=== PATIENT | female | born 1950 | race Caucasian/White ===

== ENCOUNTER 2017-10-22 17:24 | Emergency (ER) | payer MEDICARE, BC ==
[2017-10-22] MEDS ORDERED: Sodium Chloride 0.9% 10 ML Syringe FLUSH PRN (18:13)
--- NOTE | 2017-10-22 18:52 | EDM.PDOC ---
ED HPI GENERAL MEDICAL PROBLEM - General Chief Complaint: Genitourinary Problem Stated Complaint: UTI Time Seen by Provider: 10/22/17 18:10 Source of Information: Reports: Patient, Family History Limitations: Reports: No Limitations - History of Present Illness INITIAL COMMENTS - FREE TEXT/NARRATIVE: Marbella presents today with worsening UTI symptoms, discomfort with voiding, fevers and chills. She reports only once episode of nausea. She states she originally had symptoms 9 days ago, tried pushing oral fluids and her symptoms went away for 4 days. She developed blood in her urine 3-4 days ago, reported to clinic, was placed on clindamycin due to multiple allergies. She last took acetaminophen yesterday at 2130. ASA 325mg PO this am. She also reports history of frozen shoulder, head injury with diabetes insipidus. Pelvic Pain Score (Numeric/FACES): 4 - Related Data Allergies Allergy/AdvReac Type Severity Reaction Status Date / Time adhesive tape Allergy Rash Verified 10/22/17 17:56 barium sulfate Allergy Swelling Verified 10/22/17 17:56 ceftriaxone Allergy Cannot Verified 10/22/17 17:56 Remember cetirizine Allergy Swollen Verified 10/22/17 17:56 Eyes diclofenac Allergy Swelling Verified 10/22/17 17:56 gabapentin Allergy Swelling Verified 10/22/17 17:56 glycerin Allergy Cannot Verified 10/22/17 17:56 Remember hepatitis B immune globulin Allergy Cannot Verified 10/22/17 17:56 Remember hydrocodone Allergy Cannot Verified 10/22/17 17:56 Remember Iodinated Contrast- Oral and Allergy Hives Verified 10/22/17 17:56 IV Dye ketorolac [From Toradol] Allergy Cannot Verified 10/22/17 17:56 Remember lidocaine Allergy Swelling Verified 10/22/17 17:56 loratadine Allergy Swelling Verified 10/22/17 17:56 milk Allergy Cannot Verified 10/22/17 17:56 Remember nitrofurantoin Allergy Hives Verified 10/22/17 17:56 Penicillins Allergy Hives Verified 10/22/17 17:56 prochlorperazine Allergy Cannot Verified 10/22/17 17:56 [From Compazine] Remember propoxyphene Allergy Swelling Verified 10/22/17 17:56 ritodrine Allergy Tachycardia Verified 10/22/17 17:56 Sulfa (Sulfonamide Allergy Hives Verified 10/22/17 17:56 Antibiotics) thimerosal Allergy Cannot Verified 10/22/17 17:56 Remember yellow dye Allergy Cannot Verified 10/22/17 17:56 Remember Home Meds: Home Meds Aspirin 325 mg PO DAILY 10/22/17 [History] Clindamycin HCl [Cleocin] 300 mg PO Q8H 10/22/17 [History] Cyclobenzaprine [Flexeril] 10 mg PO BID 10/22/17 [History] Desloratadine 5 mg PO DAILY 10/22/17 [History] Levalbuterol Tartrate [Xopenex HFA] 1 puff INH Q6H 10/22/17 [History] Ondansetron [Zofran ODT] 4 mg PO Q6H PRN 10/22/17 [History] Pindolol [Visken] 2.5 mg PO BID 10/22/17 [History] Topiramate 50 mg PO BID 10/22/17 [History] Topiramate [Topamax] 25 mg PO BID 10/22/17 [History] Past Medical History HEENT History: Reports: Impaired Vision Cardiovascular History: Reports: Syncope, Other (See Below) Other Cardiovascular History: tachycardia Respiratory History: Reports: Asthma Genitourinary History: Reports: UTI, Recurrent [employer] History: Reports: Musculoskeletal History: Reports: Fracture, Other (See Below) Other Musculoskeletal History: frozen shoulder Neurological History: Reports: Brain Injury, Head Trauma Endocrine/Metabolic History: Reports: Other (See Below) Other Endocrine/Metabolic History: diabetes incipidous - Past Surgical History Cardiovascular Surgical History: Reports: Other (See Below) Other Cardiovascular Surgeries/Procedures: angiogram GI Surgical History: Reports: Colonoscopy Social & Family History - Tobacco Use Smoking Status *Q: Never Smoker - Caffeine Use Caffeine Use: Reports: Tea - Recreational Drug Use Recreational Drug Use: No ED ROS GENERAL - Review of Systems Review Of Systems: See Below Constitutional: Reports: Fever, Chills, Malaise. Denies: Weakness HEENT: Reports: No Symptoms Respiratory: Denies: Shortness of Breath, Wheezing, Cough, Sputum, Hemoptysis Cardiovascular: Denies: Chest Pain, Dyspnea on Exertion, Edema, Lightheadedness , Palpitations, PND, Syncope Endocrine: Reports: No Symptoms GI/Abdominal: Reports: Abdominal Pain. Denies: Black Stool, Bloody Stool, Constipation, Diarrhea, Difficulty Swallowing, Flatus, Hematemesis, Hematochezia , Nausea, Vomiting : Reports: Dysuria, Flank Pain. Denies: Frequency, Hematuria, Incontinence, Urgency, Urinary Retention Musculoskeletal: Reports: No Symptoms Skin: Reports: No Symptoms Neurological: Reports: Headache, Other (She reports her thinking feels a little slow/fuzzy. ). Denies: Dizziness, Numbness, Tingling, Weakness Psychiatric: Reports: No Symptoms Hematologic/Lymphatic: Reports: No Symptoms Immunologic: Reports: No Symptoms ED EXAM, RENAL/ - Physical Exam Exam: See Below Text/Narrative:: Marbella is an alert and oriented 66 year old female with complaints of worsening UTI symptoms despite use of clindamycin 300mg PO every 8 hours. Exam Limited By: No Limitations General Appearance: Alert, WD/WN, Mild Distress Eye Exam: Bilateral Eye: EOMI, Normal Inspection, PERRL Ears: Normal External Exam, Normal Canal, Hearing Grossly Normal, Normal TMs Nose: Normal Inspection, Normal Mucosa, No Blood Throat/Mouth: Normal Inspection, Normal Lips, Normal Teeth, Normal Gums, Normal Oropharynx, Normal Voice, No Airway Compromise Head: Atraumatic, Normocephalic Neck: Normal Inspection, Supple, Non-Tender, Full Range of Motion. No: Lymphadenopathy (R), Lymphadenopathy (L) Respiratory/Chest: No Respiratory Distress, Lungs Clear, Normal Breath Sounds, No Accessory Muscle Use, Chest Non-Tender Cardiovascular: Normal Peripheral Pulses, Regular Rate, Rhythm, No Edema, No Murmur, No Rub GI/Abdominal: Normal Bowel Sounds, Soft, No Organomegaly, No Distention, No Mass , Tender, Other (Tender to LUQ, LLQ). No: Guarding, Rigid, Rebound Back Exam: Normal Inspection, Full Range of Motion, CVA Tenderness (R). No: CVA Tenderness (L) Extremities: Normal Inspection, Normal Range of Motion, Non-Tender, No Pedal Edema, Normal Capillary Refill Neurological: Alert, Oriented, CN II-XII Intact, Normal Cognition, Normal Gait, No Motor/Sensory Deficits Psychiatric: Normal Affect, Normal Mood Skin Exam: Dry, Intact, Normal Color, No Rash, Increased Warmth Lymphatic: No Adenopathy EKG INTERPRETATION EKG Date: 10/22/17 Time: 18:37 Rhythm: NSR Rate (Beats/Min): 91 [place]: Normal P-Wave: Present QRS: Normal ST-T: Normal QT: Normal Course - Vital Signs Last Recorded V/S: Last Vital Signs Temp 39.0 C H 10/22/17 17:58 Pulse 98 10/22/17 18:17 Resp 18 10/22/17 18:17 BP 121/56 L 10/22/17 18:17 Pulse Ox 96 10/22/17 18:17 - Orders/Labs/Meds Orders: Active Orders 24 hr Category Date Time Status EKG Documentation Completion [RC] ASDIRECTED Care 10/22/17 18:15 Active Vital Signs [RC] Q1H Care 10/22/17 18:17 Active Chest 1V Frontal [CR] Stat Exams 10/22/17 18:18 Taken CULTURE BLOOD [BC] Stat Lab 10/22/17 18:20 Ordered CULTURE BLOOD [BC] Stat Lab 10/22/17 18:35 Ordered CULTURE URINE [RM] Stat Lab 10/22/17 19:08 Ordered UA W/MICROSCOPIC [URIN] Stat Lab 10/22/17 19:08 Ordered Saline Lock Insert [OM.PC] Routine Oth 10/22/17 18:13 Ordered EKG 12 Lead [EK] Routine Ther 10/22/17 18:13 Ordered Labs: Laboratory Tests 10/22/17 10/22/17 10/22/17 Range/Units 18:35 18:35 18:35 WBC 11.3 H (4.5-11.0) K/uL RBC 4.21 (3.30-5.50) M/uL Hgb 12.7 (12.0-15.0) g/dL Hct 39.0 (36.0-48.0) % MCV 93 (80-98) fL MCH 30 (27-31) pg MCHC 33 (32-36) % Plt Count 356 (150-400) K/uL Neut % (Auto) 75 H (36-66) % Lymph % (Auto) 10 L (24-44) % Nelson % (Auto) 12 H (2-6) % Eos % (Auto) 2 (2-4) % Baso % (Auto) 0 (0-1) % Sodium 138 L (140-148) mmol/L Potassium 3.8 (3.6-5.2) mmol/L Chloride 103 (100-108) mmol/L Carbon Dioxide 24 (21-32) mmol/L Anion Gap 14.8 H (5.0-14.0) mmol/L BUN 23 H (7-18) mg/dL Creatinine 1.3 H (0.6-1.0) mg/dL Est Cr Clr Drug Dosing 41.72 mL/min Estimated GFR (MDRD) 41 L (>60) Glucose 115 H (74-106) mg/dL Lactic Acid 1.0 (0.4-2.0) mmol/L Calcium 8.8 (8.5-10.1) mg/dL Total Bilirubin 0.4 (0.2-1.0) mg/dL AST 28 (15-37) U/L ALT 39 (12-78) U/L Alkaline Phosphatase 81 (46-116) U/L C-Reactive Protein 7.15 H (0.0-0.3) mg/dL Total Protein 7.6 (6.4-8.2) g/dL Albumin 3.8 (3.4-5.0) g/dL Globulin 3.8 H (2.3-3.5) g/dL Albumin/Globulin Ratio 1.0 L (1.2-2.2) Urine Color Urine Appearance Urine pH (4.5-8.0) Ur Specific [place] (1.008-1.030) Urine Protein (NEGATIVE) mg/dL Urine Glucose (UA) (NEGATIVE) mg/dL Urine Ketones (NEGATIVE) mg/dL Urine Occult Blood (NEGATIVE) Urine Nitrite (NEGATIVE) Urine Bilirubin (NEGATIVE) Urine Urobilinogen (NORMAL) mg/dL Ur Leukocyte Esterase (NEGATIVE) Urine RBC (0-5) Urine WBC (0-5) Ur Epithelial Cells Amorphous Sediment Urine Bacteria Urine Mucus 10/22/17 Range/Units 19:08 WBC (4.5-11.0) K/uL RBC (3.30-5.50) M/uL Hgb (12.0-15.0) g/dL Hct (36.0-48.0) % MCV (80-98) fL MCH (27-31) pg MCHC (32-36) % Plt Count (150-400) K/uL Neut % (Auto) (36-66) % Lymph % (Auto) (24-44) % Nelson % (Auto) (2-6) % Eos % (Auto) (2-4) % Baso % (Auto) (0-1) % Sodium (140-148) mmol/L Potassium (3.6-5.2) mmol/L Chloride (100-108) mmol/L Carbon Dioxide (21-32) mmol/L Anion Gap (5.0-14.0) mmol/L BUN (7-18) mg/dL Creatinine (0.6-1.0) mg/dL Est Cr Clr Drug Dosing mL/min Estimated GFR (MDRD) (>60) Glucose (74-106) mg/dL Lactic Acid (0.4-2.0) mmol/L Calcium (8.5-10.1) mg/dL Total Bilirubin (0.2-1.0) mg/dL AST (15-37) U/L ALT (12-78) U/L Alkaline Phosphatase (46-116) U/L C-Reactive Protein (0.0-0.3) mg/dL Total Protein (6.4-8.2) g/dL Albumin (3.4-5.0) g/dL Globulin (2.3-3.5) g/dL Albumin/Globulin Ratio (1.2-2.2) Urine Color Yellow Urine Appearance Slightly cloudy Urine pH 6.0 (4.5-8.0) Ur Specific [place] 1.015 (1.008-1.030) Urine Protein Negative (NEGATIVE) mg/dL Urine Glucose (UA) Normal (NEGATIVE) mg/dL Urine Ketones 15 H (NEGATIVE) mg/dL Urine Occult Blood Moderate (NEGATIVE) Urine Nitrite Negative (NEGATIVE) Urine Bilirubin Negative (NEGATIVE) Urine Urobilinogen Normal (NORMAL) mg/dL Ur Leukocyte Esterase Large (NEGATIVE) Urine RBC 0-5 (0-5) Urine WBC 10-20 H (0-5) Ur Epithelial Cells Rare Amorphous Sediment Not seen Urine Bacteria Few Urine Mucus Not seen Patient lab work reviewed, she was notified of findings. We will complete 2 liters of Normal saline infusion, change antibiotics to doxycyline. Meds: Medications Discontinued Medications Generic Name Dose Route Start Last Admin Trade Name Freq PRN Reason Stop Dose Admin Acetaminophen 1,000 mg 10/22/17 18:55 10/22/17 18:59 Tylenol Extra Strength PO 10/22/17 18:56 1,000 mg ONETIME ONE Administration Doxycycline Hyclate 100 mg 10/22/17 20:46 10/22/17 21:02 Vibramycin PO 10/22/17 20:47 Not Given ONETIME ONE Sodium Chloride 1,000 mls @ 1,000 mls/hr 10/22/17 18:55 10/22/17 19:00 Normal Saline IV 10/22/17 19:54 1,000 mls/hr .BOLUS ONE Administration Sodium Chloride 1,000 mls @ 1,000 mls/hr 10/22/17 19:45 10/22/17 19:49 Normal Saline IV 10/22/17 20:44 1,000 mls/hr .BOLUS ONE Administration Sodium Chloride 10 ml 10/22/17 18:13 10/22/17 18:59 Saline Flush FLUSH 10 ml ASDIRECTED PRN Administration Keep Vein Open - Radiology Interpretation Free Text/Narrative:: Chest x-ray reviewed, wet read. No acute findings. - Re-Assessments/Exams Free Text/Narrative Re-Assessment/Exam: 10/22/17 20:55 Discussed use of antibiotics with patient. She declines offer of levaquin, she is not allergic to levaquin. She declines due to the side effects of its use. She was advised of the risks including development of sepsis without proper treatment, she verbalized understanding. She will try use of doxycycline 100mg PO twice per day for 10 days for acute UTI. Dr. Saleem notified of plan, he is in agreement. Departure - Departure Time of Disposition: 21:00 Disposition: Home, Self-Care 01 Condition: Fair Clinical Impression: UTI, Urinary tract infectious disease, Dehydration - Discharge Information Instructions: Urinary Tract Infection, Adult, [id number], Dehydration, Adult , [id number] Referrals: Vincenzo Ivory MD [Primary Care Provider] - Forms: ED Department Discharge Additional Instructions: You have been treated and evaluated for worsening acute urinary tract infection. EKG normal Chest x-ray showed no acute findings Lab work showed dehydration without sepsis Normal saline 2 liters administered IV Stop use of clindamycin antibiotic. Start use of doxycycline 100mg by mouth twice per day for 10 days. Follow up with primary provider for recheck in 2 to 5 days. Push oral fluids, rest. Return for any worsening, fever, change in mental status, or other concerns. It may be in your best interest to have your primary provider preauthorize use of fosfomycin for future UTI if appropriate due to medical history and multiple allergies. - My Orders Last 24 Hours: My Active Orders 10/22/17 18:13 Saline Lock Insert [OM.PC] Routine EKG 12 Lead [EK] Routine 10/22/17 18:15 EKG Documentation Completion [RC] ASDIRECTED 10/22/17 18:17 Vital Signs [RC] Q1H 10/22/17 18:18 Chest 1V Frontal [CR] Stat 10/22/17 18:20 CULTURE BLOOD [BC] Stat 10/22/17 18:35 CULTURE BLOOD [BC] Stat 10/22/17 19:08 CULTURE URINE [RM] Stat - Assessment/Plan Last 24 Hours: My Active Orders 10/22/17 18:13 Saline Lock Insert [OM.PC] Routine EKG 12 Lead [EK] Routine 10/22/17 18:15 EKG Documentation Completion [RC] ASDIRECTED 10/22/17 18:17 Vital Signs [RC] Q1H 10/22/17 18:18 Chest 1V Frontal [CR] Stat 10/22/17 18:20 CULTURE BLOOD [BC] Stat 10/22/17 18:35 CULTURE BLOOD [BC] Stat 10/22/17 19:08 CULTURE URINE [RM] Stat Assessment:: Acute urinary tract infection Plan: Patient treated and evaluated for worsening acute urinary tract infection. EKG normal Chest x-ray showed no acute findings Lab work showed dehydration without sepsis Normal saline 2 liters administered IV Stop use of clindamycin antibiotic. Start use of doxycycline 100mg by mouth twice per day for 10 days. Follow up with primary provider for recheck in 2 to 5 days. Push oral fluids, rest. Return for any worsening, fever, change in mental status, or other concerns. It may be in her best interest to have her primary provider preauthorize use of fosfomycin for future UTI if appropriate due to medical history and multiple allergies if pertinent.
[2017-10-22] MEDS ORDERED: Acetaminophen 500 MG Tab PO ONE (18:55)
[2017-10-22] MEDS ORDERED: Sodium Chloride 0.9% 1,000 ML IV ONE ×2 (18:55→19:45)
[2017-10-22] MEDS ORDERED: Doxycycline 100 MG Cap PO ONE (20:46)
--- NOTE | 2017-10-24 10:04 | CR ---
Chest 1V Frontal INDICATION: Fever FINDINGS: Negative AP portable chest x-ray.
== END 2017-10-22 21:09 | disposition home or self-care (01) ==
LOC: JP.ED 17:24
DX: N39.0 Urinary tract infection, site not specified (principal); E23.2 Diabetes insipidus; J45.909 Unspecified asthma, uncomplicated; Z79.82 Long term (current) use of aspirin; Z79.899 Other long term (current) drug therapy; Z91.011 Allergy to milk products; Z91.041 Radiographic dye allergy status; Z88.2 Allergy status to sulfonamides; Z88.1 Allergy status to other antibiotic agents; Z88.8 Allergy status to other drugs, medicaments and biological substances; Z88.6 Allergy status to analgesic agent; Z88.5 Allergy status to narcotic agent; Z91.09 Other allergy status, other than to drugs and biological substances
CPT/HCPCS: 36415; 71045; 80053; 81001; 83605; 85025; 86140; 87040; 87086; 87088; 87186; 93005; 96360; 96361; 99284; A9270; J7040; J7050

== ENCOUNTER 2019-03-26 14:50 | Emergency (ER) | payer MEDICARE, BC ==
--- NOTE | 2019-03-26 15:10 | EDM.PDOC ---
ED HPI GENERAL MEDICAL PROBLEM - General Chief Complaint: Chest Pain Stated Complaint: CHEST PAIN Time Seen by Provider: 03/26/19 14:56 Source of Information: Reports: Patient History Limitations: Reports: No Limitations - History of Present Illness INITIAL COMMENTS - FREE TEXT/NARRATIVE: Marbella is a 68 year old female, presents to the ED today with c/o midsternal left sided chest pain. Patient reports pain was intense, mildly improved with Mylanta and Tylenol, took baby aspirin this morning. Patient did have some nausea. Patient denies any vomiting. Denies any recent URI symptoms. Patient at baseline has some sob, mildly worse today, no injury or trauma, significant family hx of cardiac disease and PE's. Patient had nuc med stress test in December as well as lung perfusion study last May which were both reassuring. Patient denies any fever. Patient did just finish a two day care ride a couple of weeks ago, denies any unilateral swelling. 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 Right Chest Pain Score (Numeric/FACES): 2 - Related Data Allergies Allergy/AdvReac Type Severity Reaction Status Date / Time adhesive tape Allergy Rash Verified 12/13/18 09:38 barium sulfate Allergy Swelling Verified 12/13/18 09:38 ceftriaxone Allergy Cannot Verified 12/13/18 09:38 Remember cetirizine Allergy Swollen Verified 12/13/18 09:38 Eyes diclofenac Allergy Swelling Verified 12/13/18 09:38 gabapentin Allergy Swelling Verified 12/13/18 09:38 glycerin Allergy Cannot Verified 12/13/18 09:38 Remember hepatitis B immune globulin Allergy Cannot Verified 12/13/18 09:38 Remember hydrocodone Allergy Cannot Verified 12/13/18 09:38 Remember Iodinated Contrast Media Allergy Hives Verified 12/13/18 09:38 ketorolac [From Toradol] Allergy Cannot Verified 12/13/18 09:38 Remember lidocaine Allergy Swelling Verified 12/13/18 09:38 loratadine Allergy Swelling Verified 12/13/18 09:38 milk Allergy Cannot Verified 12/13/18 09:38 Remember nitrofurantoin Allergy Hives Verified 12/13/18 09:38 Penicillins Allergy Hives Verified 12/13/18 09:38 prochlorperazine Allergy Cannot Verified 12/13/18 09:38 [From Compazine] Remember propoxyphene Allergy Swelling Verified 12/13/18 09:38 ritodrine Allergy Tachycardia Verified 12/13/18 09:38 Sulfa (Sulfonamide Allergy Hives Verified 12/13/18 09:38 Antibiotics) thimerosal Allergy Cannot Verified 12/13/18 09:38 Remember yellow dye Allergy Cannot Verified 12/13/18 09:38 Remember Home Meds: Home Meds Aspirin 81 mg PO BID 10/22/17 [History] Cyclobenzaprine [Flexeril] 10 mg PO BID 10/22/17 [History] Desloratadine 5 mg PO DAILY 10/22/17 [History] Levalbuterol Tartrate [Xopenex HFA] 2 puff INH Q4H PRN 10/22/17 [History] Ondansetron [Zofran ODT] 4 mg PO Q6H PRN 10/22/17 [History] Pindolol [Visken] 2.5 mg PO BID 10/22/17 [History] Topiramate [Topamax] 50 mg PO BID 10/22/17 [History] Acetaminophen [Tylenol Extra Strength] 2 tab PO Q4H PRN 12/08/18 [History] Ascorbic Acid [Vitamin C] 1 tab PO BID 12/08/18 [History] Multivitamin [Multivitamins] 1 tab PO BID 12/08/18 [History] Naproxen 1 tab PO BID 12/08/18 [History] Past Medical History HEENT History: Reports: Impaired Vision Cardiovascular History: Reports: Syncope, Other (See Below) Other Cardiovascular History: tachycardia Respiratory History: Reports: Asthma Genitourinary History: Reports: UTI, Recurrent 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: Musculoskeletal History: Reports: Fracture, Other (See Below) Other Musculoskeletal History: frozen shoulder Neurological History: Reports: Brain Injury, Head Trauma Endocrine/Metabolic History: Reports: Other (See Below) Other Endocrine/Metabolic History: diabetes incipidous - Past Surgical History Cardiovascular Surgical History: Reports: Other (See Below) Other Cardiovascular Surgeries/Procedures: angiogram GI Surgical History: Reports: Colonoscopy Social & Family History - Caffeine Use Caffeine Use: Reports: Tea ED ROS GENERAL - Review of Systems Review Of Systems: ROS reveals no pertinent complaints other than HPI. ED EXAM, GENERAL - Physical Exam Exam: See Below Exam Limited By: No Limitations General Appearance: Alert, WD/WN, No Apparent Distress Ears: Normal External Exam Nose: Normal Inspection Throat/Mouth: Normal Oropharynx Head: Atraumatic Neck: Normal Inspection, Supple, Non-Tender Respiratory/Chest: No Respiratory Distress, Lungs Clear Cardiovascular: Normal Peripheral Pulses, Regular Rate, Rhythm, No Murmur GI/Abdominal: Normal Bowel Sounds, Soft, Non-Tender Back Exam: Normal Inspection Extremities: Normal Inspection, Normal Range of Motion Neurological: Alert, Oriented, CN II-XII Intact Psychiatric: Normal Affect, Normal Mood Skin Exam: Warm, Dry, Intact Lymphatic: No Adenopathy EKG INTERPRETATION EKG Date: 03/26/19 Time: 15:00 Rhythm: NSR [place]: Normal P-Wave: Present QRS: Normal ST-T: Normal QT: Normal Comparison: No Change Course - Vital Signs Last Recorded V/S: Last Vital Signs Temp 37.2 C 03/26/19 15:35 Pulse 86 03/26/19 16:13 Resp 19 03/26/19 16:13 BP 150/79 H 03/26/19 16:13 Pulse Ox 95 03/26/19 16:13 Marbella is a 68 year old female who presents to the ED today with c/o chest pain that started at 1030 this morning with some sob and nausea. Please refer to HPI and focused exam. Patient arrives here hemodynamically stable, afebrile, baseline tremor but appears anxious as well. Recent Nuc Med stress test in December which was unremarkable. Lung perfusion Nuc Med in May of last year which was unremarkable as well but strong family hx of blood clots and cardiac issues, so certainly concerned for either of these. No fever or other symptoms to indicate infectious etiology. Pain is not reproducible. EKG and troponin unremarkable. Patient was started on NTG paste which did help the chest pain, still pain in back improved with Fentanyl. Blood work returns with elevated D Dimer of 1110, Creatinine of 1.2 with BUN of 23 and GFR of 45. Unfortunately patient is allergic to IVP dye and we do not have Nuc Med here tonight or tomorrow. I discussed patient with Dr. Lynn, [facility] ED who has graciously accepted patient for transfer for VQ scan this evening. Patient and have been updated on plan of care. Giving reassuring Vital Signs I feel she is stable for private transfer which patient prefers. Patient discharged is stable condition. - Orders/Labs/Meds Orders: Active Orders 24 hr Category Date Time Status EKG Documentation Completion [RC] ASDIRECTED Care 03/26/19 14:55 Active Peripheral IV Care [RC] . DIRECTED Care 03/26/19 15:16 Active Sodium Chloride 0.9% [Normal Saline] 1,000 ml Med 03/26/19 15:30 Active IV ASDIRECTED Sodium Chloride 0.9% [Saline Flush] Med 03/26/19 15:16 Active 10 ml FLUSH ASDIRECTED PRN Peripheral IV Insertion Adult [OM.PC] Routine Oth 03/26/19 15:16 Ordered EKG 12 Lead [EK] Stat Ther 03/26/19 14:55 Ordered Medication Orders Sodium Chloride (Normal Saline) 1,000 mls @ 150 mls/hr IV ASDIRECTED NELL Last Admin: 03/26/19 15:34 Dose: 150 mls/hr Sodium Chloride (Saline Flush) 10 ml FLUSH ASDIRECTED PRN PRN Reason: Keep Vein Open Labs: Laboratory Tests 03/26/19 03/26/19 03/26/19 Range/Units 15:28 15:28 15:28 WBC 7.7 (4.5-11.0) K/uL RBC 4.60 (3.30-5.50) M/uL Hgb 13.5 (12.0-15.0) g/dL Hct 43.5 (36.0-48.0) % MCV 95 (80-98) fL MCH 29 (27-31) pg MCHC 31 L (32-36) % Plt Count 400 (150-400) K/uL Neut % (Auto) 61 (36-66) % Lymph % (Auto) 24 (24-44) % [place] % (Auto) 10 H (2-6) % Eos % (Auto) 5 H (2-4) % Baso % (Auto) 0 (0-1) % D-Dimer, Quantitative 1110 H (0.0-400.0) ng/mL Sodium 141 (140-148) mmol/L Potassium 4.6 (3.6-5.2) mmol/L Chloride 105 (100-108) mmol/L Carbon Dioxide 26 (21-32) mmol/L Anion Gap 10.1 (5.0-14.0) mmol/L BUN 23 H (7-18) mg/dL Creatinine 1.2 H (0.6-1.0) mg/dL Est Cr Clr Drug Dosing 44.01 mL/min Estimated GFR (MDRD) 45 L (>60) Glucose 105 (74-106) mg/dL Calcium 9.5 (8.5-10.1) mg/dL Total Bilirubin 0.3 (0.2-1.0) mg/dL AST 23 (15-37) U/L ALT 38 (12-78) U/L Alkaline Phosphatase 92 (46-116) U/L Troponin I < 0.017 (0.000-0.056) ng/mL Total Protein 7.9 (6.4-8.2) g/dL Albumin 4.2 (3.4-5.0) g/dL Globulin 3.7 H (2.3-3.5) g/dL Albumin/Globulin Ratio 1.1 L (1.2-2.2) Meds: Medications Generic Name Dose Route Start Last Admin Trade Name Freq PRN Reason Stop Dose Admin Sodium Chloride 1,000 mls @ 150 mls/hr 03/26/19 15:30 03/26/19 15:34 Normal Saline IV 150 mls/hr ASDIRECTED NELL Administration Sodium Chloride 10 ml 03/26/19 15:16 Saline Flush FLUSH ASDIRECTED PRN Keep Vein Open Discontinued Medications Generic Name Dose Route Start Last Admin Trade Name Freq PRN Reason Stop Dose Admin Fentanyl 50 mcg 03/26/19 15:43 03/26/19 16:18 Sublimaze IVPUSH 03/26/19 15:44 50 mcg ONETIME ONE Administration Morphine Sulfate 4 mg 03/26/19 15:17 Morphine IVPUSH ONETIME PRN Chest Pain Nitroglycerin 0.2 mg 03/26/19 15:16 03/26/19 15:32 Nitro-Dur 0.1 Mg/Hr TRDERM 03/26/19 15:17 0.2 mg ONETIME ONE Administration Departure - Departure Time of Disposition: 17:30 Disposition: DC/Tfer to Acute Hospital 02 Reason for Transfer *Q: Primary PCI Indicated (Needs VQ scan, unable to do here) Condition: Fair Clinical Impression: Chest pain in adult, Elevated d-dimer Instructions: Nonspecific Chest Pain Referrals: Vincenzo Ivory MD [Primary Care Provider] - Forms: ED Department Discharge Additional Instructions: Head to [facility] ED Dr. Lynn has accepted the transfer. - My Orders Last 24 Hours: My Active Orders 03/26/19 14:55 EKG Documentation Completion [RC] ASDIRECTED EKG 12 Lead [EK] Stat 03/26/19 15:16 Peripheral IV Care [RC] . DIRECTED Sodium Chloride 0.9% [Saline Flush] 10 ml FLUSH ASDIRECTED PRN Peripheral IV Insertion Adult [OM.PC] Routine 03/26/19 15:30 Sodium Chloride 0.9% [Normal Saline] 1,000 ml IV ASDIRECTED - Assessment/Plan Last 24 Hours: My Active Orders 03/26/19 14:55 EKG Documentation Completion [RC] ASDIRECTED EKG 12 Lead [EK] Stat 03/26/19 15:16 Peripheral IV Care [RC] . DIRECTED Sodium Chloride 0.9% [Saline Flush] 10 ml FLUSH ASDIRECTED PRN Peripheral IV Insertion Adult [OM.PC] Routine 03/26/19 15:30 Sodium Chloride 0.9% [Normal Saline] 1,000 ml IV ASDIRECTED
[2019-03-26] MEDS ORDERED: Sodium Chloride 0.9% 10 ML Syringe FLUSH PRN (15:16)
[2019-03-26] MEDS ORDERED: Nitroglycerin 0.1 MG/HR Transdermal Patch TRDERM ONE (15:16)
[2019-03-26] MEDS ORDERED: Morphine 4 MG/ML Syringe IVPUSH PRN (15:17)
[2019-03-26] MEDS ORDERED: Sodium Chloride 0.9% 1,000 ML IV SCH (15:30)
[2019-03-26] MEDS ORDERED: fentaNYL 100 MCG/2 ML SDV IVPUSH ONE (15:43)
== END 2019-03-26 17:02 ==
LOC: JP.ED 14:50
DX: R07.2 Precordial pain (principal); R79.1 Abnormal coagulation profile; J45.909 Unspecified asthma, uncomplicated; Z91.048 Other nonmedicinal substance allergy status; Z91.041 Radiographic dye allergy status; Z88.1 Allergy status to other antibiotic agents; Z88.6 Allergy status to analgesic agent; Z88.8 Allergy status to other drugs, medicaments and biological substances; Z91.011 Allergy to milk products; Z88.0 Allergy status to penicillin; Z88.2 Allergy status to sulfonamides; Z79.82 Long term (current) use of aspirin; Z79.899 Other long term (current) drug therapy
CPT/HCPCS: 36415; 80053; 84484; 85025; 85379; 93005; 96361; 96374; 96375; 99285; A9270; J3010; J7030

== ENCOUNTER 2020-10-25 14:45 | Inpatient (IN) | payer MEDICARE, BC ==
[2020-10-25] MEDS ORDERED: Simethicone 80 MG Tab.Chew PO ONE (16:14)
--- NOTE | 2020-10-25 16:27 | EDM.PDOC ---
<KavyajaironUlises G - Last Filed: 10/25/20 17:39> ED HPI GENERAL MEDICAL PROBLEM - General Chief Complaint: Abdominal Pain Stated Complaint: stomach issues Time Seen by Provider: 10/25/20 16:15 Source of Information: Reports: Patient, Old Records, RN History Limitations: Reports: No Limitations - History of Present Illness INITIAL COMMENTS - FREE TEXT/NARRATIVE: 69 yo female has been dealing with some abdominal bloating for some time now. Was recently seen in follow up by a COMMISSIONS ANALYST for follow up on some COMMISSIONS ANALYST surgery. While there mentioned the bloating. The COMMISSIONS ANALYST thought she might have a partial bowel obstruction and a CT scan was scheduled for next week. Starting in the night last night she has felt more bloating and her last 2 BM's were softer/looser t anguiano normal. No vomiting. Onset: Gradual Duration: Week(s):, Getting Worse, Waxing/Waning Location: Reports: Abdomen Quality: Reports: Pressure Severity: Mild Improves with: Reports: None Worsens with: Reports: Other (with time) Context: Reports: Other (see HPI) Associated Symptoms: Reports: No Other Symptoms. 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) (Maalox Plus last night without relief) Abdomen Pain Score (Numeric/FACES): 6 - Related Data Allergies Allergy/AdvReac Type Severity Reaction Status Date / Time adhesive tape Allergy Rash Verified 12/13/18 09:38 barium sulfate Allergy Swelling Verified 12/13/18 09:38 ceftriaxone Allergy Cannot Verified 12/13/18 09:38 Remember cetirizine Allergy Swollen Verified 12/13/18 09:38 Eyes diclofenac Allergy Swelling Verified 12/13/18 09:38 gabapentin Allergy Swelling Verified 12/13/18 09:38 glycerin Allergy Cannot Verified 12/13/18 09:38 Remember hepatitis B immune globulin Allergy Cannot Verified 12/13/18 09:38 Remember hydrocodone Allergy Cannot Verified 12/13/18 09:38 Remember Iodinated Contrast Media Allergy Hives Verified 12/13/18 09:38 ketorolac [From Toradol] Allergy Cannot Verified 12/13/18 09:38 Remember lidocaine Allergy Swelling Verified 12/13/18 09:38 loratadine Allergy Swelling Verified 12/13/18 09:38 milk Allergy Cannot Verified 12/13/18 09:38 Remember nitrofurantoin Allergy Hives Verified 12/13/18 09:38 Penicillins Allergy Hives Verified 12/13/18 09:38 prochlorperazine Allergy Cannot Verified 12/13/18 09:38 [From Compazine] Remember propoxyphene Allergy Swelling Verified 12/13/18 09:38 ritodrine Allergy Tachycardia Verified 12/13/18 09:38 Sulfa (Sulfonamide Allergy Hives Verified 12/13/18 09:38 Antibiotics) thimerosal Allergy Cannot Verified 12/13/18 09:38 Remember yellow dye Allergy Cannot Verified 12/13/18 09:38 Remember Home Meds: Home Meds Aspirin 81 mg PO BID 10/22/17 [History] Cyclobenzaprine [Flexeril] 10 mg PO BID 10/22/17 [History] Desloratadine 5 mg PO DAILY 10/22/17 [History] Levalbuterol Tartrate [Xopenex HFA] 2 puff INH Q4H PRN 10/22/17 [History] Ondansetron [Zofran ODT] 4 mg PO Q6H PRN 10/22/17 [History] Topiramate [Topamax] 50 mg PO BID 10/22/17 [History] pindoloL [Visken] 2.5 mg PO BID 10/22/17 [History] Acetaminophen [Tylenol Extra Strength] 2 tab PO Q4H PRN 12/08/18 [History] Ascorbic Acid [Vitamin C] 1 tab PO BID 12/08/18 [History] Multivitamin [Multivitamins] 1 tab PO BID 12/08/18 [History] Naproxen 1 tab PO BID 12/08/18 [History] Olopatadine [Patanol 0.1% Ophth Soln] 1 % .ROUTE BID 10/25/20 [History] Topiramate 50 mg PO ASDIRECTED 10/25/20 [History] Past Medical History HEENT History: Reports: Impaired Vision Cardiovascular History: Reports: Syncope, Other (See Below) Other Cardiovascular History: tachycardia Respiratory History: Reports: Asthma Gastrointestinal History: Reports: Other (See Below) Other Gastrointestinal History: C/O abd blotting Genitourinary History: Reports: UTI, Recurrent 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: Musculoskeletal History: Reports: Fracture, Other (See Below) Other Musculoskeletal History: Fx ankle frozen shoulder Neurological History: Reports: Brain Injury, Head Trauma Endocrine/Metabolic History: Reports: Other (See Below) Other Endocrine/Metabolic History: diabetes incipidous - Infectious Disease History Infectious Disease History: Reports: Chicken Pox - Past Surgical History Cardiovascular Surgical History: Reports: Other (See Below) Other Cardiovascular Surgeries/Procedures: angiogram GI Surgical History: Reports: Colonoscopy Social & Family History - Tobacco Use Tobacco Use Status *Q: Never Tobacco User - Caffeine Use Caffeine Use: Reports: Coffee - Recreational Drug Use Recreational Drug Use: No ED ROS GENERAL - Review of Systems Review Of Systems: See Below Constitutional: Reports: No Symptoms HEENT: Reports: No Symptoms Respiratory: Reports: No Symptoms Cardiovascular: Reports: No Symptoms GI/Abdominal: Reports: Abdominal Pain (bloating), Diarrhea, Distension. Denies: Black Stool, Bloody Stool, Constipation, Hematemesis, Hematochezia, Melena, Nausea, Vomiting : Reports: No Symptoms Musculoskeletal: Reports: No Symptoms Skin: Reports: No Symptoms Neurological: Reports: No Symptoms Psychiatric: Reports: No Symptoms ED EXAM, GI/ABD - Physical Exam Exam: See Below Exam Limited By: No Limitations General Appearance: Alert, WD/WN, No Apparent Distress Eyes: Bilateral: Normal Appearance Ears: Normal External Exam, Normal Canal, Hearing Grossly Normal Nose: Normal Inspection, No Blood Throat/Mouth: Normal Inspection, Normal Lips, Normal Voice, No Airway Compromise Head: Atraumatic, Normocephalic Neck: Normal Inspection Respiratory/Chest: No Respiratory Distress, Lungs Clear, Normal Breath Sounds, No Accessory Muscle Use Cardiovascular: Regular Rate, Rhythm, No Edema GI/Abdominal Exam: Soft, Non-Tender, Distended (minimal), Abnormal Bowel Sounds (increased). No: No Distention, Guarding, Rigid, Rebound, Tender Extremities: Normal Inspection, Normal Range of Motion, Non-Tender, No Pedal Edema Neurological: Alert, Oriented, CN II-XII Intact, Normal Cognition, No Motor/Sensory Deficits Psychiatric: Normal Affect, Normal Mood Skin Exam: Warm, Dry, Intact, Normal Color, No Rash Course - Radiology Interpretation Free Text/Narrative:: Flat/upright abdominal X-rays-air fluid levels present, likely early or partial bowel obstruction CT abd/pelvis no contrast- Departure - Departure Disposition: Admitted As Inpatient 68 Clinical Impression: Partial obstruction of small intestine - Discharge Information Referrals: Vincenzo Ivory MD [Primary Care Provider] - Forms: ED Department Discharge Sepsis Event Note (ED) - Evaluation Sepsis Screening Result: No Definite Risk <Praful Amanda - Last Filed: 10/25/20 18:55> Course - Vital Signs Last Recorded V/S: Last Vital Signs Temp 36.4 C 10/25/20 15:09 Pulse 78 10/25/20 15:09 Resp 18 10/25/20 15:09 BP 141/77 H 10/25/20 15:09 Pulse Ox 96 10/25/20 15:09 - Orders/Labs/Meds Orders: Active Orders 24 hr Category Date Time Status Abdomen 2V AP Flat Upright [CR] Stat Exams 10/25/20 16:21 Taken Abdomen Pelvis wo Cont [CT] Stat Exams 10/25/20 17:03 Taken Lactated Ringers [Ringers, Lactated] 1,000 ml Med 10/25/20 17:45 Active IV ASDIRECTED Sodium Chloride 0.9% [Saline Flush] Med 10/25/20 17:01 Active 10 ml FLUSH ASDIRECTED PRN Saline Lock Insert [OM.PC] Routine Oth 10/25/20 17:01 Ordered Medication Orders Lactated Ringer's (Ringers, Lactated) 1,000 mls @ 150 mls/hr IV ASDIRECTED NELL Last Admin: 10/25/20 17:59 Dose: 150 mls/hr Documented by: JOSE Sodium Chloride (Sodium Chloride 0.9% 10 Ml Syringe) 10 ml FLUSH ASDIRECTED PRN PRN Reason: Keep Vein Open Last Admin: 10/25/20 17:58 Dose: 10 ml Documented by: JOSE Labs: Laboratory Tests 10/25/20 10/25/20 Range/Units 17:20 17:20 WBC 8.9 (4.5-11.0) K/uL RBC 4.65 (3.30-5.50) M/uL Hgb 13.6 (12.0-15.0) g/dL Hct 43.8 (36.0-48.0) % MCV 94 (80-98) fL MCH 29 (27-31) pg MCHC 31 L (32-36) % Plt Count 437 H (150-400) K/uL Sodium 140 (140-148) mmol/L Potassium 4.5 (3.6-5.2) mmol/L Chloride 102 (100-108) mmol/L Carbon Dioxide 26 (21-32) mmol/L Anion Gap 12.1 (5.0-14.0) mmol/L BUN 23 H (7-18) mg/dL Creatinine 1.3 H (0.6-1.0) mg/dL Est Cr Clr Drug Dosing 39.31 mL/min Estimated GFR (MDRD) 41 L (>60) Glucose 105 (74-106) mg/dL Calcium 9.3 (8.5-10.1) mg/dL Meds: Medications Generic Name Dose Route Start Last Admin Trade Name Freq PRN Reason Stop Dose Admin Lactated Ringer's 1,000 mls @ 150 mls/hr 10/25/20 17:45 10/25/20 17:59 Ringers, Lactated IV 150 mls/hr ASDIRECTED NELL Administration Sodium Chloride 10 ml 10/25/20 17:01 10/25/20 17:58 Sodium Chloride 0.9% 10 Ml Syringe FLUSH 10 ml ASDIRECTED PRN Administration Keep Vein Open Discontinued Medications Generic Name Dose Route Start Last Admin Trade Name Freq PRN Reason Stop Dose Admin Simethicone 160 mg 10/25/20 16:14 10/25/20 16:36 Simethicone 80 Mg Tab.Chew PO 10/25/20 16:15 160 mg ONETIME ONE Administration - Re-Assessments/Exams Free Text/Narrative Re-Assessment/Exam: 10/25/20 18:02 Dr. Amanda is assuming of the care of the patient from Dr. Ram while we await the interpretation of the CT of the abdomen and pelvis without contrast. There is suspicion of the patient has a small bowel obstruction and will likely need admission. More to come once this has been interpreted. 10/25/20 18:[address] of the abdomen pelvis demonstrating a partial small bowel obstruction in the mid gut likely due to adhesions or positional traction on the small bowel. I discussed the case with Dr. Angeles who will follow the patient in with Natalie Varela CNP who will admit the patient. An NG tube has been placed to decompress the GI tract. Patient understands and is in agreement with the plan. Departure - Departure Time of Disposition: 18:54 Sepsis Event Note (ED) - Focused Exam Vital Signs: Vital Signs Temp Pulse Resp BP Pulse Ox 10/25/20 15:09 36.4 C 78 18 141/77 H 96 - Problem List & Annotations (1) Partial obstruction of small intestine SNOMED Code(s): 293373414 Code(s): K56.600 - PARTIAL INTESTINAL OBSTRUCTION, UNSPECIFIED TO CAUSE Status: Acute Priority: High Current Visit: Yes - Problem List Review Problem List Initiated/Reviewed/Updated: Yes
[2020-10-25] MEDS ORDERED: Sodium Chloride 0.9% 10 ML Syringe FLUSH PRN (17:01)
[2020-10-25] MEDS ORDERED: Lactated Ringers 1,000 ML IV SCH (17:45)
--- NOTE | 2020-10-25 18:23 | CRLCT ---
INDICATION: Possible bowel obstruction. Contrast allergy. TECHNIQUE: Noncontrast CT of the abdomen and pelvis. COMPARISON: Correlation is made with plain radiographs of the abdomen and pelvis from the same date. FINDINGS: There are numerous mild to moderately dilated small bowel loops within the abdomen and pelvis predominantly within the left mid and upper quadrant extending into the central pelvis. The more distal small bowel loops are of more normal caliber. There appears to be a transition point within the central lower abdomen/upper pelvis, image 96 series 2. This could be on the basis of an adhesion. There still air and fluid scattered throughout the colon and rectum. Minimal free pelvic fluid may be reactive. The unenhanced liver, spleen, pancreas, gallbladder, adrenal glands, and both kidneys are within normal limits. Scattered vascular calcification within a normal caliber abdominal aorta and iliac arteries. Normal inferior vena cava. Small esophageal hiatal hernia. The urinary bladder is unremarkable. The uterus is absent. Nonvisualization of the ovaries. No evidence for appendicitis or diverticular disease. The included skeleton demonstrates mild degenerative disc disease at L3 and L4. IMPRESSION: 1. Partial small bowel obstruction potentially on the basis of an adhesion/possible transition point within the central lower abdomen/upper pelvis image 96 series 2. 2. Minimal free pelvic fluid likely reactive. 3. Small esophageal hiatal hernia. Please note that all CT scans at this facility use dose modulation, iterative reconstruction, and/or weight-based dosing when appropriate to reduce radiation dose to as low as reasonably achievable. Dictated by José Miguel Interiano MD @ 10/25/2020 6:22:[address] José Miguel Interiano @ Oct 25 2020 6:22PM
[2020-10-25] MEDS ORDERED: Diazepam 5 MG Tab PO ONE (19:08)
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
[2020-10-25] MEDS ORDERED: Levalbuterol Tartrate HFA 15 GM Inhaler INH PRN (19:58)
[2020-10-25] MEDS ORDERED: Ondansetron 4 MG Tab.DIS PO PRN (19:58)
[2020-10-25] MEDS: Topiramate 25 MG Tab PO SCH (20:33)
[2020-10-25] MEDS: Cyclobenzaprine 10 MG Tab PO SCH (20:33)
[2020-10-25] MEDS: Acetaminophen 500 MG Tab PO PRN (21:40)
[2020-10-26] MEDS: Sodium Chloride 0.9% 1,000 ML IV SCH ×2 (00:10→08:39)
[2020-10-26] MEDS: Pindolol 10 MG Tab PO SCH ×2 (08:32→20:26)
[2020-10-26] MEDS: Cyclobenzaprine 10 MG Tab PO SCH ×3 (08:32→20:26)
[2020-10-26] MEDS: Topiramate 25 MG Tab PO SCH ×2 (08:33→20:25)
[2020-10-26] MEDS: Ascorbic Acid 500 MG Tab PO SCH ×2 (08:33→20:27)
[2020-10-26] MEDS: Pantoprazole 40 MG Vial IV SCH (08:34)
[2020-10-26] MEDS ORDERED: DESLORATADINE 5 MG PO SCH (09:00)
--- NOTE | 2020-10-26 10:25 | CONS ---
DATE OF SERVICE: 10/26/2020 REFERRING PHYSICIAN: CONSULTING PHYSICIAN: Sheng Angeles MD REASON FOR CONSULTATION: Abdominal pain. HISTORY OF PRESENT ILLNESS: A 69-year-old female who was admitted via the emergency room via the hospitalist service for intermittent abdominal pain. This has been present for months. She attributes this to her robotic hysterectomy in [place]. Pain is 4 to 5 out of 10. No nausea, vomiting, shortness of breath, or chest pain at this moment. This pain has improved over the evening. PAST MEDICAL HISTORY: Hysterectomy as above, history of TBI, UTI, asthma, tachycardia, syncope, shoulder and ankle orthopedic injuries. SOCIAL HISTORY: She is not a smoker. FAMILY HISTORY: Noncontributory. REVIEW OF SYSTEMS: GENERAL: Appropriate for condition. HEENT: The patient wears glasses. RESPIRATORY: She does report some shortness of breath, however, not worsened acutely. CARDIOVASCULAR: No history of myocardial infarction. GI: As above. GENITOURINARY: No symptoms. MUSCULOSKELETAL: As described above with respect to fractures. PSYCHIATRIC: No current issues. NEUROLOGICAL: History of TBI. The remainder review of systems was reviewed and is negative. PHYSICAL EXAMINATION: VITAL SIGNS: Temperature 97.2, blood pressure 140/65, pulse 78, respirations 16, 97% on room air. HEENT: Pupils are equal. NECK: Supple. LUNGS: Clear. CARDIOVASCULAR: Regular rhythm and rate. LUNGS: Clear to auscultation bilaterally. ABDOMEN: Very mild pain with palpation. No rebound. No guarding. Minimal distention. EXTREMITIES: Full range of motion. NEUROLOGICAL: Oriented x3. The patient did have a normal discussion. PSYCHIATRIC: No gross depression. IMAGING: I did review the CT scan, which shows a partial small bowel obstruction. LABORATORY RESULTS: Show a normal white blood cell count. ASSESSMENT: Partial small bowel obstruction. PLAN: The patient is doing quite well. She is trying to pass a small amount of gas. She is in very minimal pain. The patient subjectively states this has significantly improved over the last 24 hours. We will consider diet in the next 24 hours. Increase activity. General cares per hospitalist service. Sheng Angeles MD /[phone]
--- NOTE | 2020-10-26 11:34 | PCM.PN ---
- General Info Date of Service: 10/26/20 Subjective Update: There were no acute events overnight. Patient reports no abdominal pain at this time. She does not have any nausea. She is passing gas and did have one loose bowel movement. No fevers. Able to tolerate small sips of water and crackers with her medications. We did review the CT scan report and talked about adhesions is the likely cause for her obstruction. Functional Status: Reports: Pain Controlled - Review of Systems General: Denies: Fever Gastrointestinal: Reports: Flatus. Denies: Abdominal Pain - Patient Data Vitals - Most Recent: Last Vital Signs Temp 35.8 C L 10/26/20 10:36 Pulse 72 10/26/20 10:36 Resp 18 10/26/20 10:36 BP 110/62 10/26/20 10:36 Pulse Ox 97 10/26/20 10:36 Weight - Most Recent: 76.204 kg I&O - Last 24 Hours: Intake & Output 10/25/20 10/26/20 10/26/20 22:59 06:59 14:59 Intake Total 990 Output Total 200 100 300 Balance -200 890 -300 Lab Results Last 24 Hours: Laboratory Results - last 24 hr 10/25/20 10/25/20 10/26/20 Range/Units 17:20 17:20 04:56 WBC 8.9 8.7 (4.5-11.0) K/uL RBC 4.65 4.01 (3.30-5.50) M/uL Hgb 13.6 12.1 (12.0-15.0) g/dL Hct 43.8 38.1 (36.0-48.0) % MCV 94 95 (80-98) fL MCH 29 30 (27-31) pg MCHC 31 L 32 (32-36) % Plt Count 437 H 368 (150-400) K/uL Neut % (Auto) 45.7 (36-66) % Lymph % (Auto) 38.6 (24-44) % [place] % (Auto) 9.2 H (2-6) % Eos % (Auto) 6.4 H (2-4) % Baso % (Auto) 0.1 (0-1) % Sodium 140 (140-148) mmol/L Potassium 4.5 (3.6-5.2) mmol/L Chloride 102 (100-108) mmol/L Carbon Dioxide 26 (21-32) mmol/L Anion Gap 12.1 (5.0-14.0) mmol/L BUN 23 H (7-18) mg/dL Creatinine 1.3 H (0.6-1.0) mg/dL Est Cr Clr Drug Dosing 39.31 mL/min Estimated GFR (MDRD) 41 L (>60) Glucose 105 (74-106) mg/dL Calcium 9.3 (8.5-10.1) mg/dL 10/26/20 Range/Units 04:56 WBC (4.5-11.0) K/uL RBC (3.30-5.50) M/uL Hgb (12.0-15.0) g/dL Hct (36.0-48.0) % MCV (80-98) fL MCH (27-31) pg MCHC (32-36) % Plt Count (150-400) K/uL Neut % (Auto) (36-66) % Lymph % (Auto) (24-44) % [place] % (Auto) (2-6) % Eos % (Auto) (2-4) % Baso % (Auto) (0-1) % Sodium 143 (140-148) mmol/L Potassium 3.8 (3.6-5.2) mmol/L Chloride 107 (100-108) mmol/L Carbon Dioxide 27 (21-32) mmol/L Anion Gap 8.7 (5.0-14.0) mmol/L BUN 18 (7-18) mg/dL Creatinine 1.2 H (0.6-1.0) mg/dL Est Cr Clr Drug Dosing 43.41 mL/min Estimated GFR (MDRD) 45 L (>60) Glucose 96 (74-106) mg/dL Calcium 8.3 L (8.5-10.1) mg/dL Med Orders - Current: Current Medications Acetaminophen (Acetaminophen 500 Mg Tab) 1,000 mg PO Q4H PRN PRN Reason: Pain Last Admin: 10/25/20 21:40 Dose: 1,000 mg Documented by: Ascorbic Acid (Ascorbic Acid 500 Mg Tab) 500 mg PO BID [facility] Last Admin: 10/26/20 08:33 Dose: 500 mg Documented by: Cyclobenzaprine HCl (Cyclobenzaprine 10 Mg Tab) 10 mg PO BID [facility] Last Admin: 10/26/20 08:35 Dose: Not Given Documented by: Sodium Chloride (Normal Saline) 1,000 mls @ 125 mls/hr IV ASDIRECTED [facility] Last Admin: 10/26/20 08:39 Dose: 125 mls/hr Documented by: Levalbuterol HCl (Levalbuterol Tartrate Hfa 15 Gm Inhaler) 0 gm INH Q4H PRN PRN Reason: Wheezing Non-Formulary Medication (Desloratadine [Desloratadine]) 5 mg PO DAILY [facility] Ondansetron HCl (Ondansetron 4 Mg Tab.Dis) 4 mg PO Q6H PRN PRN Reason: Nausea able to take PO Pantoprazole Sodium (Pantoprazole 40 Mg Vial) 40 mg IV DAILY@0730 [facility] Last Admin: 10/26/20 08:34 Dose: 40 mg Documented by: Pindolol (Pindolol 10 Mg Tab) 2.5 mg PO BID [facility] Last Admin: 10/26/20 08:32 Dose: 2.5 mg Documented by: Sodium Chloride (Sodium Chloride 0.9% 10 Ml Syringe) 10 ml FLUSH ASDIRECTED PRN PRN Reason: Keep Vein Open Last Admin: 10/25/20 17:58 Dose: 10 ml Documented by: Topiramate (Topiramate 25 Mg Tab) 50 mg PO BID [facility] Last Admin: 10/26/20 08:33 Dose: 50 mg Documented by: Discontinued Medications Diazepam (Diazepam 5 Mg Tab) 5 mg PO ONETIME ONE Stop: 10/25/20 19:09 Last Admin: 10/25/20 22:29 Dose: Not Given Documented by: Lactated Ringer's (Ringers, Lactated) 1,000 mls @ 150 mls/hr IV ASDIRECTED [facility] Last Admin: 10/25/20 17:59 Dose: 150 mls/hr Documented by: Simethicone (Simethicone 80 Mg Tab.Chew) 160 mg PO ONETIME ONE Stop: 10/25/20 16:15 Last Admin: 10/25/20 16:36 Dose: 160 mg Documented by: - Exam Quality Assessment: No: Supplemental Oxygen General: Alert, Oriented, Cooperative, No Acute Distress Lungs: Normal Respiratory Effort GI/Abdominal Exam: Soft, No Distention, Tender (mild lower abdomen ), Abnormal Bowel Sounds (hypoactive ) Extremities: No Pedal Edema Psy/Mental Status: Alert, Normal Affect - Patient Data Lab Results Last 24 hrs: Laboratory Results - last 24 hr 10/25/20 10/25/20 10/26/20 Range/Units 17:20 17:20 04:56 WBC 8.9 8.7 (4.5-11.0) K/uL RBC 4.65 4.01 (3.30-5.50) M/uL Hgb 13.6 12.1 (12.0-15.0) g/dL Hct 43.8 38.1 (36.0-48.0) % MCV 94 95 (80-98) fL MCH 29 30 (27-31) pg MCHC 31 L 32 (32-36) % Plt Count 437 H 368 (150-400) K/uL Neut % (Auto) 45.7 (36-66) % Lymph % (Auto) 38.6 (24-44) % [place] % (Auto) 9.2 H (2-6) % Eos % (Auto) 6.4 H (2-4) % Baso % (Auto) 0.1 (0-1) % Sodium 140 (140-148) mmol/L Potassium 4.5 (3.6-5.2) mmol/L Chloride 102 (100-108) mmol/L Carbon Dioxide 26 (21-32) mmol/L Anion Gap 12.1 (5.0-14.0) mmol/L BUN 23 H (7-18) mg/dL Creatinine 1.3 H (0.6-1.0) mg/dL Est Cr Clr Drug Dosing 39.31 mL/min Estimated GFR (MDRD) 41 L (>60) Glucose 105 (74-106) mg/dL Calcium 9.3 (8.5-10.1) mg/dL 10/26/20 Range/Units 04:56 WBC (4.5-11.0) K/uL RBC (3.30-5.50) M/uL Hgb (12.0-15.0) g/dL Hct (36.0-48.0) % MCV (80-98) fL MCH (27-31) pg MCHC (32-36) % Plt Count (150-400) K/uL Neut % (Auto) (36-66) % Lymph % (Auto) (24-44) % [place] % (Auto) (2-6) % Eos % (Auto) (2-4) % Baso % (Auto) (0-1) % Sodium 143 (140-148) mmol/L Potassium 3.8 (3.6-5.2) mmol/L Chloride 107 (100-108) mmol/L Carbon Dioxide 27 (21-32) mmol/L Anion Gap 8.7 (5.0-14.0) mmol/L BUN 18 (7-18) mg/dL Creatinine 1.2 H (0.6-1.0) mg/dL Est Cr Clr Drug Dosing 43.41 mL/min Estimated GFR (MDRD) 45 L (>60) Glucose 96 (74-106) mg/dL Calcium 8.3 L (8.5-10.1) mg/dL Result Diagrams: 10/26/20 04:56 10/26/20 04:56 Sepsis Event Note - Evaluation Sepsis Screening Result: No Definite Risk - Focused Exam Vital Signs: Vital Signs Temp Pulse Pulse Resp BP BP Pulse Ox 10/26/20 10:36 35.8 C L 72 18 110/62 97 10/26/20 08:32 82 108/59 L 10/26/20 06:57 36.1 C 79 18 108/59 L 98 10/26/20 02:00 35.7 C L 83 18 124/64 95 10/26/20 01:04 98 - Problem List Review Problem List Initiated/Reviewed/Updated: Yes - My Orders Last 24 Hours: My Active Orders 10/26/20 11:45 Dextrose 5%-1/2 Normal Saline with KCl 20 mEq @ 75 mL/Hr (1000 mL) D5 1/2 NS w/ 20 mEq/L KCl 1,000 ml IV ASDIRECTED 10/26/20 Dinner NPO After Midnight [Nothing per Oral After Midnight Diet] [DIET] - Plan Plan:: ASSESSMENT AND PLAN OF CARE- SMALL BOWEL OBSTRUCTION Partial small bowel obstruction secondary to postoperative adhesions-CT scan revealed partial small bowel obstruction. Hysterectomy in June of this year. She has been symptomatic since the early postoperative period. I doubt this is going to resolve without surgery at some point. She could consider trying full liquids versus GI soft diet but I still think this is unlikely to get better. -Gentle IV fluids -Pain and nausea management -Not able to tolerate NG tube -Surgical follow-up per Dr. Angeles -Nothing by mouth except for few ice chips and medications -Nothing by mouth after midnight -Flat and upright in the morning Chronic back pain-stable. -continue outpatient medications Asthma-stable. -continue outpatient medication. Maintenance issues - - DVT prophylaxis - SCD - GI prophylaxis -PPI - Nutrition -nothing by mouth Disposition -I would anticipate discharge home after the hospital stay Primary care physician - Dr. Ivory, [facility] Mukesh Gaytan M.D.
[2020-10-26] MEDS: Acetaminophen 500 MG Tab PO PRN ×2 (15:09→23:11)
[2020-10-26] MEDS: D5 1/2 NS w/ 20 mEq/L KCl 1,000 ML IV SCH (18:13)
[2020-10-27] MEDS: Pantoprazole 40 MG Vial IV SCH (07:41)
[2020-10-27] MEDS: D5 1/2 NS w/ 20 mEq/L KCl 1,000 ML IV SCH (07:45)
[2020-10-27] MEDS: Pindolol 10 MG Tab PO SCH ×3 (10:07→20:55)
[2020-10-27] MEDS: Cyclobenzaprine 10 MG Tab PO SCH ×2 (10:07→20:55)
[2020-10-27] MEDS: Topiramate 25 MG Tab PO SCH ×3 (10:08→20:55)
[2020-10-27] MEDS: Ascorbic Acid 500 MG Tab PO SCH ×3 (10:08→20:58)
--- NOTE | 2020-10-27 12:18 | PCM.PN ---
- General Info Date of Service: 10/27/20 Subjective Update: Ms. Wylie has felt improved from admission, currently experiencing no abdominal pain or nausea. She has been passing gas and has had bowel movements. X-ray from this morning appears to be improved and she has been started on a diet by Dr. Angeles. Functional Status: Reports: Ambulating, Urinating - Review of Systems General: Reports: No Symptoms Pulmonary: Reports: No Symptoms Cardiovascular: Reports: No Symptoms Gastrointestinal: Reports: No Symptoms - Patient Data Vitals - Most Recent: Last Vital Signs Temp 96.5 F L 10/27/20 10:37 Pulse 87 10/27/20 11:52 Resp 16 10/27/20 10:37 BP 114/80 10/27/20 11:52 Pulse Ox 96 10/27/20 10:37 Weight - Most Recent: 168 lb 0.017 oz I&O - Last 24 Hours: Intake & Output 10/26/20 10/27/20 10/27/20 22:59 06:59 14:59 Intake Total 351 30 Output Total 750 1150 Balance -399 -1120 Med Orders - Current: Current Medications Acetaminophen (Acetaminophen 500 Mg Tab) 1,000 mg PO Q4H PRN PRN Reason: Pain Last Admin: 10/26/20 23:11 Dose: 1,000 mg Documented by: Ascorbic Acid (Ascorbic Acid 500 Mg Tab) 500 mg PO BID [facility] Last Admin: 10/27/20 11:53 Dose: 500 mg Documented by: Cyclobenzaprine HCl (Cyclobenzaprine 10 Mg Tab) 10 mg PO BID [facility] Last Admin: 10/27/20 10:07 Dose: Not Given Documented by: Levalbuterol HCl (Levalbuterol Tartrate Hfa 15 Gm Inhaler) 0 gm INH Q4H PRN PRN Reason: Wheezing Non-Formulary Medication (Desloratadine [Desloratadine]) 5 mg PO DAILY [facility] Ondansetron HCl (Ondansetron 4 Mg Tab.Dis) 4 mg PO Q6H PRN PRN Reason: Nausea able to take PO Pantoprazole Sodium (Pantoprazole 40 Mg Vial) 40 mg IV DAILY@0730 [facility] Last Admin: 10/27/20 07:41 Dose: 40 mg Documented by: Pindolol (Pindolol 10 Mg Tab) 2.5 mg PO BID [facility] Last Admin: 10/27/20 11:52 Dose: 2.5 mg Documented by: Sodium Chloride (Sodium Chloride 0.9% 10 Ml Syringe) 10 ml FLUSH ASDIRECTED PRN PRN Reason: Keep Vein Open Last Admin: 10/25/20 17:58 Dose: 10 ml Documented by: Topiramate (Topiramate 25 Mg Tab) 50 mg PO BID [facility] Last Admin: 10/27/20 11:53 Dose: 50 mg Documented by: Discontinued Medications Diazepam (Diazepam 5 Mg Tab) 5 mg PO ONETIME ONE Stop: 10/25/20 19:09 Last Admin: 10/25/20 22:29 Dose: Not Given Documented by: Lactated Ringer's (Ringers, Lactated) 1,000 mls @ 150 mls/hr IV ASDIRECTED [facility] Last Admin: 10/25/20 17:59 Dose: 150 mls/hr Documented by: Sodium Chloride (Normal Saline) 1,000 mls @ 125 mls/hr IV ASDIRECTED [facility] Last Admin: 10/26/20 08:39 Dose: 125 mls/hr Documented by: Potassium Chloride/Dextrose/Sod Cl (D5 1/2 Ns W/ 20 Meq/L Kcl) 1,000 mls @ 75 mls/hr IV ASDIRECTED [facility] Last Admin: 10/27/20 07:45 Dose: 75 mls/hr Documented by: Simethicone (Simethicone 80 Mg Tab.Chew) 160 mg PO ONETIME ONE Stop: 10/25/20 16:15 Last Admin: 10/25/20 16:36 Dose: 160 mg Documented by: - Exam General: Alert, Oriented, Cooperative, No Acute Distress Lungs: Clear to Auscultation, Normal Respiratory Effort Cardiovascular: Regular Rate, Regular Rhythm, No Murmurs GI/Abdominal Exam: Soft, Non-Tender, No Organomegaly, No Distention Extremities: Non-Tender, No Pedal Edema - Patient Data Result Diagrams: 10/26/20 04:56 10/26/20 04:56 Sepsis Event Note - Evaluation Sepsis Screening Result: No Definite Risk - Focused Exam Vital Signs: Vital Signs Temp Pulse Pulse Resp BP BP Pulse Ox 10/27/20 11:52 87 114/80 10/27/20 10:37 96.5 F L 87 16 114/80 96 10/27/20 07:00 96.4 F L 78 16 127/63 98 10/27/20 03:00 97.4 F 67 16 110/55 L 98 - Problem List Review Problem List Initiated/Reviewed/Updated: Yes - My Orders Last 24 Hours: My Active Orders 10/27/20 12:08 Convert IV to Saline Lock [OM.PC] Routine 10/28/20 05:00 Abdomen 2V AP Flat Upright [CR] DAILY 10/29/20 05:00 Abdomen 2V AP Flat Upright [CR] DAILY - Plan Plan:: ASSESSMENT AND PLAN OF CARE- SMALL BOWEL OBSTRUCTION Partial small bowel obstruction secondary to postoperative adhesions-CT scan revealed partial small bowel obstruction. She is felt improved from admission, currently no abdominal pain or nausea. She has been passing gas and has had bowel movements. -Advance diet as ordered by Dr. Angeles -Saline lock IV -Pain and nausea management -Surgical follow-up per Dr. Angeles -Flat and upright in the morning Chronic back pain-stable. -continue outpatient medications Asthma-stable. -continue outpatient medication. Maintenance issues - - DVT prophylaxis - SCD - GI prophylaxis -PPI - Nutrition -nothing by mouth Disposition -I would anticipate discharge home after the hospital stay Primary care physician - Dr. Ivory, [facility]
--- NOTE | 2020-10-27 14:49 | CR ---
Abdomen 2V AP Flat Upright CLINICAL HISTORY: Abdominal pain FINDINGS: No free air is identified. There is gaseous distention of small bowel with some scattered air-fluid levels. There is some gas and feces in the colon. There are granulomata in the spleen IMPRESSION: Small bowel distention with scattered air-fluid levels. This may represent early SBO or ileus. Clinical correlation necessary
--- NOTE | 2020-10-27 16:12 | CR ---
Abdomen 2V AP Flat Upright CLINICAL HISTORY: Follow-up obstruction FINDINGS: No free air is identified. There is some mild small bowel distention which is increased when compared to prior study. There is gas and feces in the left colon. IMPRESSION: Mild gaseous distention of small bowel. This is nonspecific. There has been some improvement since prior study
[2020-10-27] MEDS: Acetaminophen 500 MG Tab PO PRN (20:54)
[2020-10-28] MEDS: Pantoprazole 40 MG Tab.CR PO SCH (07:37)
[2020-10-28] MEDS: Pantoprazole 40 MG Vial IV SCH (07:37)
[2020-10-28] MEDS: Ascorbic Acid 500 MG Tab PO SCH ×2 (09:01→20:09)
[2020-10-28] MEDS: Pindolol 10 MG Tab PO SCH ×2 (09:02→20:08)
[2020-10-28] MEDS: Cyclobenzaprine 10 MG Tab PO SCH ×2 (09:02→20:08)
[2020-10-28] MEDS: Topiramate 25 MG Tab PO SCH ×2 (09:03→20:09)
[2020-10-28] MEDS: Acetaminophen 500 MG Tab PO PRN ×2 (09:07→20:08)
--- NOTE | 2020-10-28 09:59 | CR ---
Abdomen 2V AP Flat Upright CLINICAL HISTORY: Follow-up SBO FINDINGS: There is persistent small bowel distention similar to the prior day's study. No free air is identified. There is some gas and feces throughout the colon. IMPRESSION: Small bowel distention with no significant interval change from 10/27/2020
--- NOTE | 2020-10-28 10:50 | PCM.PN ---
- General Info Date of Service: 10/28/20 Subjective Update: Ms. Wylie has been on a clear and full liquid diet over the last 24 hours. She reports symptoms of increased abdominal distention as well as some nausea. Abdominal x-ray continues to show some small bowel distention. There were no air-fluid levels noted today. Functional Status: Reports: Ambulating, Urinating - Review of Systems General: Reports: No Symptoms Pulmonary: Reports: No Symptoms Cardiovascular: Reports: No Symptoms Gastrointestinal: Reports: Abdominal Pain, Nausea. Denies: Diarrhea, Difficulty Swallowing, Hematochezia, Melena, Vomiting - Patient Data Vitals - Most Recent: Last Vital Signs Temp 95.5 F L 10/28/20 07:00 Pulse 98 10/28/20 09:02 Resp 16 10/28/20 07:00 BP 129/72 10/28/20 09:02 Pulse Ox 98 10/28/20 07:00 Weight - Most Recent: 168 lb 0.017 oz I&O - Last 24 Hours: Intake & Output 10/27/20 10/28/20 10/28/20 22:59 06:59 14:59 Intake Total 2455 500 Output Total 1500 400 Balance 955 100 Med Orders - Current: Current Medications Acetaminophen (Acetaminophen 500 Mg Tab) 1,000 mg PO Q4H PRN PRN Reason: Pain Last Admin: 10/28/20 09:07 Dose: 1,000 mg Documented by: Ascorbic Acid (Ascorbic Acid 500 Mg Tab) 500 mg PO BID [facility] Last Admin: 10/28/20 09:01 Dose: 500 mg Documented by: Cyclobenzaprine HCl (Cyclobenzaprine 10 Mg Tab) 10 mg PO BID [facility] Last Admin: 10/28/20 09:02 Dose: 10 mg Documented by: Levalbuterol HCl (Levalbuterol Tartrate Hfa 15 Gm Inhaler) 0 gm INH Q4H PRN PRN Reason: Wheezing Non-Formulary Medication (Desloratadine [Desloratadine]) 5 mg PO DAILY [facility] Ondansetron HCl (Ondansetron 4 Mg Tab.Dis) 4 mg PO Q6H PRN PRN Reason: Nausea able to take PO Pantoprazole Sodium (Pantoprazole 40 Mg Tab.Cr) 40 mg PO ACBREAKFAST [facility] Last Admin: 10/28/20 07:37 Dose: 40 mg Documented by: Pindolol (Pindolol 10 Mg Tab) 2.5 mg PO BID [facility] Last Admin: 10/28/20 09:02 Dose: 2.5 mg Documented by: Sodium Chloride (Sodium Chloride 0.9% 10 Ml Syringe) 10 ml FLUSH ASDIRECTED PRN PRN Reason: Keep Vein Open Last Admin: 10/25/20 17:58 Dose: 10 ml Documented by: Topiramate (Topiramate 25 Mg Tab) 50 mg PO BID [facility] Last Admin: 10/28/20 09:03 Dose: 50 mg Documented by: Discontinued Medications Diazepam (Diazepam 5 Mg Tab) 5 mg PO ONETIME ONE Stop: 10/25/20 19:09 Last Admin: 10/25/20 22:29 Dose: Not Given Documented by: Lactated Ringer's (Ringers, Lactated) 1,000 mls @ 150 mls/hr IV ASDIRECTED [facility] Last Admin: 10/25/20 17:59 Dose: 150 mls/hr Documented by: Sodium Chloride (Normal Saline) 1,000 mls @ 125 mls/hr IV ASDIRECTED [facility] Last Admin: 10/26/20 08:39 Dose: 125 mls/hr Documented by: Potassium Chloride/Dextrose/Sod Cl (D5 1/2 Ns W/ 20 Meq/L Kcl) 1,000 mls @ 75 mls/hr IV ASDIRECTED [facility] Last Admin: 10/27/20 07:45 Dose: 75 mls/hr Documented by: Pantoprazole Sodium (Pantoprazole 40 Mg Vial) 40 mg IV DAILY@0730 [facility] Last Admin: 10/28/20 07:37 Dose: Not Given Documented by: Simethicone (Simethicone 80 Mg Tab.Chew) 160 mg PO ONETIME ONE Stop: 10/25/20 16:15 Last Admin: 10/25/20 16:36 Dose: 160 mg Documented by: - Exam General: Alert, Oriented, Cooperative, Mild Distress Lungs: Clear to Auscultation, Normal Respiratory Effort Cardiovascular: Regular Rate, Regular Rhythm, No Murmurs GI/Abdominal Exam: Soft, No Organomegaly, Distended, Tender. No: Guarding, Rigid, Rebound Extremities: Non-Tender, No Pedal Edema - Patient Data Result Diagrams: 10/26/20 04:56 10/26/20 04:56 Sepsis Event Note - Evaluation Sepsis Screening Result: No Definite Risk - Focused Exam Vital Signs: Vital Signs Temp Pulse Pulse Resp BP BP Pulse Ox 10/28/20 09:02 98 129/72 10/28/20 07:00 95.5 F L 98 16 129/72 98 10/28/20 02:00 95.3 F L 96 18 112/58 L 96 10/27/20 22:44 96.5 F L 69 18 121/72 98 - Problem List Review Problem List Initiated/Reviewed/Updated: Yes - My Orders Last 24 Hours: My Active Orders 10/27/20 12:08 Convert IV to Saline Lock [OM.PC] Routine 10/29/20 05:00 Abdomen 2V AP Flat Upright [CR] DAILY Abdomen 2V AP Upright Decub [CR] Timed BASIC METABOLIC PANEL,BMP [CHEM] Timed - Plan Plan:: ASSESSMENT AND PLAN OF CARE- SMALL BOWEL OBSTRUCTION Partial small bowel obstruction secondary to postoperative adhesions-CT scan revealed partial small bowel obstruction. She is having difficulty tolerating even liquids and full liquids thus far, more abdominal distention and nausea. X-ray does show small bowel distention. -Advance diet as ordered by Dr. Angeles -Saline lock IV -Pain and nausea management -Surgical follow-up per Dr. Angeles -Flat and upright in the morning Chronic back pain-stable. -continue outpatient medications Asthma-stable. -continue outpatient medication. Maintenance issues - - DVT prophylaxis - SCD - GI prophylaxis -PPI - Nutrition -nothing by mouth Disposition -I would anticipate discharge home after the hospital stay Primary care physician - Dr. Ivory, [facility]
[2020-10-29] MEDS: Cyclobenzaprine 10 MG Tab PO SCH ×2 (06:33→08:55)
[2020-10-29] MEDS: Acetaminophen 500 MG Tab PO PRN (06:34)
[2020-10-29] MEDS: Topiramate 25 MG Tab PO SCH (08:58)
[2020-10-29] MEDS: Pindolol 10 MG Tab PO SCH (08:58)
[2020-10-29] MEDS: Pantoprazole 40 MG Tab.CR PO SCH ×2 (08:58→09:01)
[2020-10-29] MEDS: Ascorbic Acid 500 MG Tab PO SCH (08:58)
--- NOTE | 2020-10-29 09:26 | CR ---
Abdomen 2V AP Upright Decub CLINICAL HISTORY: Follow-up SBO FINDINGS: There are air-filled loops of small bowel similar to prior study. There is gas in the transverse colon increased since prior study IMPRESSION: Mild gaseous distention of small bowel similar to prior study Increasing gas in the transverse colon
--- NOTE | 2020-10-29 12:59 | PCM.DCSUM1 ---
Discharge Summary - Hospital Course Brief History: Ms. Wylie is a 69-year-old woman who was admitted through the emergency department with abdominal pain, nausea, vomiting, secondary to partial small bowel obstruction. - Discharge Data Discharge Date: 10/29/20 Discharge Disposition: Home, Self-Care 01 Condition: Fair - Referral to Home Health Primary Care Physician: Vincenzo Ivory MD - Discharge Diagnosis/Problem(s) (1) Partial obstruction of small intestine SNOMED Code(s): 806630997 ICD Code: K56.600 - PARTIAL INTESTINAL OBSTRUCTION, UNSPECIFIED TO CAUSE Status: Acute Priority: High Current Visit: Yes (2) Chronic low back pain SNOMED Code(s): 232828293 ICD Code: M54.5 - LOW BACK PAIN; G89.29 - OTHER CHRONIC PAIN Status: Chronic Priority: Low Current Visit: Yes Qualifiers: Back pain laterality: unspecified - Patient Summary/Data Consults: Consultations 10/27/20 12:22 Consult to Dietary [Consult to Room Service [place]] [CONS] Routine Comment: Physician Instructions: Quantity: Special Instructions: Hospital Course: 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 She was seen last in [place], [place]. for abdominal pain- was told she probable had a bowel obstruction. She was scheduled for abdominal CT scan on Tuesday, but this morning the pain and bloating was worse, nauseated without vomiting. Decided to come to the ER for evaluation. On evaluation in the emergency department CT scan of the abdomen p chaim showed evidence of a partial small bowel obstruction with transition point in the distal small intestine. She initially was kept n.p.o. and given IV fluids for hydration as well as medication as needed for pain and nausea. She was seen and evaluated for his surgical consult by Dr. Angeles. She did show some modest improvement, passing gas with one liquid bowel movement. Decision was made to proceed with conservative management if possible. She was started on a clear liquid diet which was advanced to full liquid and then soft low residue. She somewhat tolerated the diet but continued to note symptoms of abdominal distention following eating associated with some pain and nausea. The pain would gradually improved but then recur again with eating. She decided to proceed with plan for conservative management to see if the problem would work itself out over time especially if she tries to follow a soft diet. She did have some difficulty with urinary retention prior to discharge. Bladder scan showed an 80 cc postvoid residual. Urinalysis was obtained and was clear with no evidence of underlying infection. Activity will be as tolerated and she will continue on a soft low residue diet. Follow-up appointments will be scheduled with her primary care provider as well as Dr. Angeles. - Patient Instructions Diet: GI Soft/Low Residue/Low Fiber Activity: As Tolerated - Discharge Plan *PRESCRIPTION DRUG MONITORING PROGRAM REVIEWED*: Not Applicable *COPY OF PRESCRIPTION DRUG MONITORING REPORT IN PATIENT SARAHI: Not Applicable Home Medications: Home Meds Aspirin 81 mg PO BID 10/22/17 [History] Cyclobenzaprine [Flexeril] 10 mg PO DAILY 10/22/17 [History] Desloratadine 5 mg PO DAILY 10/22/17 [History] Levalbuterol Tartrate [Xopenex HFA] 2 puff INH Q4H PRN 10/22/17 [History] pindoloL [Visken] 2.5 mg PO BID 10/22/17 [History] Acetaminophen [Tylenol Extra Strength] 2 tab PO Q4H PRN 12/08/18 [History] Ascorbic Acid [Vitamin C] 1 tab PO BID 12/08/18 [History] Multivitamin [Multivitamins] 1 tab PO BID 12/08/18 [History] Cholecalciferol (Vitamin D3) [Vitamin D] 1,000 unit PO BID 10/25/20 [History] Olopatadine [Patanol 0.1% Ophth Soln] 1 % .ROUTE BID 10/25/20 [History] Topiramate 50 mg PO DAILY 10/25/20 [History] Topiramate [Topamax] 1 tab PO DAILY 10/25/20 [History] Patient Handouts: Bowel Obstruction, [id number] Referrals: Vincenzo Ivory MD [Primary Care Provider] - 11/05/20 9:00 am Sheng Angeles MD [Physician] - 11/17/20 1:00 pm - Discharge Summary/Plan Comment DC Time >30 min.: No - Patient Data Vitals - Most Recent: Last Vital Signs Temp 95.9 F L 10/29/20 08:55 Pulse 77 10/29/20 08:58 Resp 18 10/29/20 08:55 BP 119/66 10/29/20 08:58 Pulse Ox 96 10/29/20 08:55 Weight - Most Recent: 168 lb 0.017 oz I&O - Last 24 hours: Intake & Output 10/28/20 10/29/20 10/29/20 22:59 06:59 14:59 Intake Total 900 540 450 Output Total 1250 300 400 Balance -350 240 50 Lab Results - Last 24 hrs: Laboratory Results - last 24 hr 10/29/20 10/29/20 Range/Units 04:31 10:20 Sodium 144 (140-148) mmol/L Potassium 3.8 (3.6-5.2) mmol/L Chloride 106 (100-108) mmol/L Carbon Dioxide 26 (21-32) mmol/L Anion Gap 12.3 (5.0-14.0) mmol/L BUN 15 (7-18) mg/dL Creatinine 1.3 H (0.6-1.0) mg/dL Est Cr Clr Drug Dosing 40.13 mL/min Estimated GFR (MDRD) 41 L (>60) Glucose 94 (74-106) mg/dL Calcium 9.0 (8.5-10.1) mg/dL Urine Color Yellow (YELLOW) Urine Appearance Clear (CLEAR) Urine pH 6.0 (5.0-8.0) Ur Specific [place] 1.010 (1.008-1.030) Urine Protein Negative (NEGATIVE) mg/dL Urine Glucose (UA) Negative (NEGATIVE) mg/dL Urine Ketones Negative (NEGATIVE) mg/dL Urine Occult Blood Negative (NEGATIVE) Urine Nitrite Negative (NEGATIVE) Urine Bilirubin Negative (NEGATIVE) Urine Urobilinogen 0.2 (0.2-1.0) EU/dL Ur Leukocyte Esterase Negative (NEGATIVE) Urine RBC Not seen (0-5) Urine WBC Not seen (0-5) Ur Epithelial Cells Rare Amorphous Sediment Rare Urine Bacteria Not seen Urine Mucus Not seen Med Orders - Current: Current Medications Acetaminophen (Acetaminophen 500 Mg Tab) 1,000 mg PO Q4H PRN PRN Reason: Pain Last Admin: 10/29/20 06:34 Dose: 1,000 mg Documented by: Ascorbic Acid (Ascorbic Acid 500 Mg Tab) 500 mg PO BID [facility] Last Admin: 10/29/20 08:58 Dose: 500 mg Documented by: Cyclobenzaprine HCl (Cyclobenzaprine 10 Mg Tab) 10 mg PO BID [facility] Last Admin: 10/29/20 08:55 Dose: Not Given Documented by: Levalbuterol HCl (Levalbuterol Tartrate Hfa 15 Gm Inhaler) 0 gm INH Q4H PRN PRN Reason: Wheezing Non-Formulary Medication (Desloratadine [Desloratadine]) 5 mg PO DAILY [facility] Ondansetron HCl (Ondansetron 4 Mg Tab.Dis) 4 mg PO Q6H PRN PRN Reason: Nausea able to take PO Pindolol (Pindolol 10 Mg Tab) 2.5 mg PO BID [facility] Last Admin: 10/29/20 08:58 Dose: 2.5 mg Documented by: Sodium Chloride (Sodium Chloride 0.9% 10 Ml Syringe) 10 ml FLUSH ASDIRECTED PRN PRN Reason: Keep Vein Open Last Admin: 10/25/20 17:58 Dose: 10 ml Documented by: Topiramate (Topiramate 25 Mg Tab) 50 mg PO BID [facility] Last Admin: 10/29/20 08:58 Dose: 50 mg Documented by: Discontinued Medications Diazepam (Diazepam 5 Mg Tab) 5 mg PO ONETIME ONE Stop: 10/25/20 19:09 Last Admin: 10/25/20 22:29 Dose: Not Given Documented by: Lactated Ringer's (Ringers, Lactated) 1,000 mls @ 150 mls/hr IV ASDIRECTED [facility] Last Admin: 10/25/20 17:59 Dose: 150 mls/hr Documented by: Sodium Chloride (Normal Saline) 1,000 mls @ 125 mls/hr IV ASDIRECTED [facility] Last Admin: 10/26/20 08:39 Dose: 125 mls/hr Documented by: Potassium Chloride/Dextrose/Sod Cl (D5 1/2 Ns W/ 20 Meq/L Kcl) 1,000 mls @ 75 mls/hr IV ASDIRECTED [facility] Last Admin: 10/27/20 07:45 Dose: 75 mls/hr Documented by: Pantoprazole Sodium (Pantoprazole 40 Mg Vial) 40 mg IV DAILY@0730 [facility] Last Admin: 10/28/20 07:37 Dose: Not Given Documented by: Pantoprazole Sodium (Pantoprazole 40 Mg Tab.Cr) 40 mg PO ACBREAKFAST [facility] Last Admin: 10/29/20 09:01 Dose: Not Given Documented by: Simethicone (Simethicone 80 Mg Tab.Chew) 160 mg PO ONETIME ONE Stop: 10/25/20 16:15 Last Admin: 10/25/20 16:36 Dose: 160 mg Documented by: - Exam General: Reports: Alert, Oriented, Cooperative, Mild Distress Lungs: Reports: Clear to Auscultation, Normal Respiratory Effort Cardiovascular: Reports: Regular Rate, Regular Rhythm, No Murmurs GI/Abdominal Exam: Soft, No Organomegaly, Distended, Tender. No: Guarding, Rigid, Rebound Extremities: Non-Tender, No Pedal Edema
== END 2020-10-29 13:30 | disposition home or self-care (01) | DRG 390 ==
LOC: JP.ED 14:45 → JP.MS 18:46 → EEVIPCON 18:46
PROVIDERS: ADMIT Internal Medicine; ATTEND Internal Medicine
DX: K56.600 Partial intestinal obstruction, unspecified as to cause (principal); G89.29 Other chronic pain; M54.5 Low back pain; E23.2 Diabetes insipidus; Z88.6 Allergy status to analgesic agent; Z88.4 Allergy status to anesthetic agent; Z66 Do not resuscitate; Z91.041 Radiographic dye allergy status; R33.9 Retention of urine, unspecified; Z88.0 Allergy status to penicillin; H54.7 Unspecified visual loss; Z88.8 Allergy status to other drugs, medicaments and biological substances; Z91.048 Other nonmedicinal substance allergy status; J45.909 Unspecified asthma, uncomplicated; Z87.440 Personal history of urinary (tract) infections; Z90.710 Acquired absence of both cervix and uterus; Z79.82 Long term (current) use of aspirin; Z79.899 Other long term (current) drug therapy; Z87.820 Personal history of traumatic brain injury; Z98.890 Other specified postprocedural states; Z91.09 Other allergy status, other than to drugs and biological substances; Z88.1 Allergy status to other antibiotic agents; Z88.7 Allergy status to serum and vaccine; Z88.5 Allergy status to narcotic agent; Z91.011 Allergy to milk products; Z88.2 Allergy status to sulfonamides
CPT/HCPCS: 36415; 51798; 74019; 74019-26; 74021; 74021-26; 74176; 80048; 81001; 85025; 85027; 99285-25; A9270-GY; C9113; J3480; J7030; J7120